=== PATIENT | female | born 2000 | race African-American/Black ===

== ENCOUNTER 2024-05-14 11:37 | Emergency (ER) | payer OTHER ==
[~2024-05-14] VITALS: Ht 162.6 cm; Wt 78.1 kg
[2024-05-14 11:47] VITALS: TEMP 96.6
[2024-05-14 14:48] VITALS: BP 117/59; O2SAT 98
== END 2024-05-14 14:49 | disposition home or self-care (01) ==
LOC: M ED 11:37
DX: R10.2 Pelvic and perineal pain (principal); Z87.42 Personal history of other diseases of the female genital tract; Z88.3 Allergy status to other anti-infective agents

== ENCOUNTER 2024-09-19 21:50 | Emergency (ER) | payer OTHER ==
[~2024-09-19] VITALS: Ht 165.1 cm; Wt 75.3 kg
[2024-09-19 21:54] VITALS: BP 107/56; TEMP 97.6; O2SAT 99
[2024-09-19 22:46] LABS: APPEARANCE, URINE CLEAR (CLEAR); BACTERIA, URINE AUTO NEGATIVE (NEGATIVE); BILIRUBIN, URINE AUTO NEGATIVE (NEGATIVE); BLOOD, URINE BLOOD NEGATIVE (NEGATIVE); COLOR, URINE YELLOW (YELLOW); GLUCOSE, URINE (UA) AUTO NEGATIVE (NEGATIVE); KETONE, URINE AUTO NEGATIVE (NEGATIVE); LEUKOCYTE ESTERASE, URINE AUTO NEGATIVE (NEGATIVE); MUCUS, URINE SMALL (NEGATIVE); NITRITE, URINE AUTO NEGATIVE (NEGATIVE); PROTEIN, URINE AUTO NEGATIVE (NEGATIVE); RBC, URINE AUTO 0 /HPF (0-3); SPECIFIC GRAVITY URINE AUTO 1.024 (1.002-1.035); SQUAMOUS EPITHELIAL CELL UR AU 1 /HPF (0-6); UROBILINOGEN, URINE AUTO 0.2 mg/dL (0.0-2.0); WBC, URINE AUTO 1 /HPF (0-3)
[2024-09-19 22:55] LABS: BASO # 0.1 10^3/uL (0.0-0.2); BASO % 0.6 % (0.0-1.0); EOS # 0.2 10^3/uL (0.0-0.5); EOS % 1.8 % (0.0-3.0); HEMATOCRIT 33.7 % (36.0-47.0); HEMOGLOBIN 11.2 g/dl (12.0-15.5); LYMPH # 2.9 10^3/uL (1.5-5.0); MEAN CORPUSCULAR HEMOGLOBIN 30.3 pg (27.0-33.0); MEAN CORPUSCULAR HGB CONC 33.2 g/dl (32.0-36.5); MEAN CORPUSCULAR VOLUME 91.1 fl (80.0-96.0); MONO # 0.6 10^3/uL (0.0-0.8); MONO % 7.5 % (2.0-8.0); NEUTROPHILS # 4.4 10^3/uL (1.5-8.5); NEUTROPHILS % 53.9 % (36.0-66.0); PLATELET COUNT, AUTOMATED 253 10^3/uL (150-450); WHITE BLOOD COUNT 8.2 10^3/uL (4.0-10.0)
[2024-09-19 23:18] LABS: BLOOD UREA NITROGEN 17 MG/DL (9-23); CALCIUM LEVEL 9.3 MG/DL (8.5-10.1); CARBON DIOXIDE LEVEL 26 MMOL/L (20-31); CHLORIDE LEVEL 107 MMOL/L (98-107); CREATININE FOR GFR 0.66 MG/DL (0.55-1.30); GLOMERULAR FILTRATION RATE > 90.0 (>60); GLUCOSE, FASTING 87 MG/DL (60-100); POTASSIUM SERUM 4.2 MMOL/L (3.5-5.1); SODIUM LEVEL 141 MMOL/L (136-145)
[2024-09-19 23:32] LABS: HCG, SERUM QUANTITATIVE 7751.2 MIU/ML (<4.2)
== END 2024-09-19 23:15 | disposition left against medical advice (07) ==
LOC: M ED 21:50
DX: Z53.21 Procedure and treatment not carried out due to patient leaving prior to being seen by health care provider (principal)

== ENCOUNTER → 2024-11-19 | Outpatient (REF) | payer OTHER ==
[~2024-11-19] MED LIST: CEPH500C PO; FAMO40TA3 PO; ONDA-282 PO; ONDA-83 PO; PREN1CHW6 PO; PYRI25TA2
[2024-11-19 14:30] LABS: Trichomonas vaginalis (AMP) NOT DETECTED (NEGATIVE)
[2024-11-19 14:53] LABS: GC DNA AMPLIFICATION NEGATIVE (NEGATIVE)
== END ==
LOC: M SFHCWAGY 12:51
PROVIDERS: ATTEND Obstetrics & Gynecology
DX: Z34.81 Encounter for supervision of other normal pregnancy, first trimester (principal)

== ENCOUNTER → 2024-12-23 | Outpatient (CLI) | payer OTHER | LOC: M WHC 09:02 | PROVIDERS: ATTEND Obstetrics & Gynecology | DX: O09.892 Supervision of other high risk pregnancies, second trimester (principal); Z3A.19 19 weeks gestation of pregnancy ==

== ENCOUNTER → 2024-12-23 | Outpatient (CLI) | payer OTHER ==
[2024-12-23 13:35] LABS: PLATELET COUNT, AUTOMATED 196 10^3/uL (150-450)
[2024-12-23 14:15] LABS: IRON (FE) 55.0 UG/DL (50-170)
== END ==
LOC: M PLALAB 10:32
PROVIDERS: ATTEND Advanced Practice Midwife
DX: O09.892 Supervision of other high risk pregnancies, second trimester (principal); Z3A.00 Weeks of gestation of pregnancy not specified

== ENCOUNTER 2025-01-10 12:59 | Outpatient (CLI) | payer OTHER ==
[~2025-01-10 12:59] MED LIST changes: +ALBUTEROL SULFATE 2.5 MG/0.5 ML INH CONCENTRATE NEB SOLN INH PRN; +EPINEPHrine INJ 1 MG/ML 1ML AMP IM PRN; +diphenhydrAMINE 50 MG/ML VIAL IV PRN
[2025-01-10] MEDS: FERRIC CARBOXYMALTOSE 750 MG (VIAL MATE) IN 100ML NS IV ONE (13:00)
[2025-01-10 13:05] VITALS: BP 120/66; O2SAT 99
[2025-01-10 13:45] VITALS: BP 125/70; O2SAT 98
== END 2025-01-10 13:50 | disposition home or self-care (01) ==
LOC: M INFU 12:59
PROVIDERS: ATTEND Advanced Practice Midwife
DX: O99.019 Anemia complicating pregnancy, unspecified trimester (principal); Z3A.00 Weeks of gestation of pregnancy not specified
CPT/HCPCS: 96365; J1439

== ENCOUNTER 2025-01-15 11:21 | Emergency (ER) | payer OTHER ==
[~2025-01-15 11:21] MED LIST changes: -ALBUTEROL SULFATE 2.5 MG/0.5 ML INH CONCENTRATE NEB SOLN INH PRN; -EPINEPHrine INJ 1 MG/ML 1ML AMP IM PRN; -diphenhydrAMINE 50 MG/ML VIAL IV PRN
== END 2025-01-15 13:15 | disposition admitted as inpatient to this hospital (09) ==
LOC: M ED 11:21
DX: Z53.21 Procedure and treatment not carried out due to patient leaving prior to being seen by health care provider (principal)

== ENCOUNTER 2025-01-15 11:30 | Outpatient (CLI) | payer OTHER ==
[~2025-01-15] VITALS: Ht 165.1 cm; Wt 83.9 kg
[2025-01-15 11:43] VITALS: BP 113/57
[2025-01-15] MEDS ORDERED: HOME MED LIST COMPLETE! XX SCH (11:45)
[2025-01-15 13:42] LABS: APPEARANCE, URINE CLEAR (CLEAR); BACTERIA, URINE AUTO NEGATIVE (NEGATIVE); BILIRUBIN, URINE AUTO NEGATIVE (NEGATIVE); BLOOD, URINE BLOOD NEGATIVE (NEGATIVE); GLUCOSE, URINE (UA) AUTO NEGATIVE (NEGATIVE); KETONE, URINE AUTO NEGATIVE (NEGATIVE); LEUKOCYTE ESTERASE, URINE AUTO NEGATIVE (NEGATIVE); MUCUS, URINE SMALL (NEGATIVE); NITRITE, URINE AUTO NEGATIVE (NEGATIVE); PROTEIN, URINE AUTO NEGATIVE (NEGATIVE); RBC, URINE AUTO 0 /HPF (0-3); SPECIFIC GRAVITY URINE AUTO 1.014 (1.002-1.035); SQUAMOUS EPITHELIAL CELL UR AU 1 /HPF (0-6); UROBILINOGEN, URINE AUTO 0.2 mg/dL (0.0-2.0); WBC, URINE AUTO 0 /HPF (0-3)
[2025-01-15 14:11] VITALS: BP 106/55
== END 2025-01-15 15:33 | disposition home or self-care (01) ==
LOC: M LDO 11:30
PROVIDERS: ATTEND Advanced Practice Midwife
DX: O26.892 Other specified pregnancy related conditions, second trimester (principal); R10.2 Pelvic and perineal pain; R25.2 Cramp and spasm; O26.22 Pregnancy care for patient with recurrent pregnancy loss, second trimester; Z3A.22 22 weeks gestation of pregnancy
CPT/HCPCS: 59025; 76815; 76817; 81001; 87088; 87186; G0463

== ENCOUNTER → 2025-01-16 | Outpatient (CLI) | payer OTHER | LOC: M WHC 11:02 | PROVIDERS: ATTEND Advanced Practice Midwife | DX: Z34.82 Encounter for supervision of other normal pregnancy, second trimester (principal); Z3A.22 22 weeks gestation of pregnancy ==

== ENCOUNTER → 2025-01-23 | Outpatient (CLI) | payer OTHER ==
[~2025-01-23] VITALS: Ht 165.1 cm; Wt 77.2 kg
[~2025-01-23] MED LIST changes: +ALBUTEROL SULFATE 2.5 MG/0.5 ML INH CONCENTRATE NEB SOLN INH PRN; +EPINEPHrine INJ 1 MG/ML 1ML AMP IM PRN; +FERRIC CARBOXYMALTOSE 750 MG (VIAL MATE) IN 100ML NS IV ONE; +diphenhydrAMINE 50 MG/ML VIAL IV PRN
[2025-01-23 15:35] VITALS: BP 106/60; O2SAT 98
[2025-01-23] MEDS: FERRIC CARBOXYMALTOSE 750 MG (VIAL MATE) IN 100ML NS IV ONE (15:43)
[2025-01-23 16:05] VITALS: BP 119/58; O2SAT 98
== END ==
LOC: M INFU 15:30
PROVIDERS: ATTEND Advanced Practice Midwife
DX: O99.019 Anemia complicating pregnancy, unspecified trimester (principal); Z3A.00 Weeks of gestation of pregnancy not specified
CPT/HCPCS: 96365; J1439

== ENCOUNTER → 2025-02-11 | Outpatient (CLI) | payer OTHER ==
[~2025-02-11] MED LIST changes: -ALBUTEROL SULFATE 2.5 MG/0.5 ML INH CONCENTRATE NEB SOLN INH PRN; -EPINEPHrine INJ 1 MG/ML 1ML AMP IM PRN; -FERRIC CARBOXYMALTOSE 750 MG (VIAL MATE) IN 100ML NS IV ONE; -diphenhydrAMINE 50 MG/ML VIAL IV PRN
== END ==
LOC: M PLALAB 09:13
PROVIDERS: ATTEND Nurse Practitioner Family
DX: Z34.82 Encounter for supervision of other normal pregnancy, second trimester (principal)

== ENCOUNTER → 2025-02-14 | Outpatient (CLI) | payer OTHER ==
[2025-02-14 14:54] LABS: PLATELET COUNT, AUTOMATED 185 10^3/uL (150-450)
[2025-02-14 15:34] LABS: HIV 1&2 SCREEN NEGATIVE (NEGATIVE)
[2025-02-14 15:41] LABS: HEPATITIS C VIRUS ABY INDEX 0.04 INDEX (<0.8)
[2025-02-14 16:49] LABS: Trichomonas vaginalis (AMP) NOT DETECTED (NEGATIVE)
[2025-02-14 17:12] LABS: GC DNA AMPLIFICATION NEGATIVE (NEGATIVE)
== END ==
LOC: M PLALAB 10:18
PROVIDERS: ATTEND Nurse Practitioner Family
DX: Z34.82 Encounter for supervision of other normal pregnancy, second trimester (principal)

== ENCOUNTER 2025-02-21 20:29 | Outpatient (CLI) | payer OTHER ==
[~2025-02-21] VITALS: Ht 162.6 cm; Wt 87.6 kg
[2025-02-21 20:43] VITALS: BP 108/55
[2025-02-21 21:13] LABS: KETONE, URINE AUTO RFX NEGATIVE (NEGATIVE); LEUKOCYTE ESTERASE UR AUTO RFX NEGATIVE (NEGATIVE); NITRITE, URINE AUTO RFX NEGATIVE (NEGATIVE); RBC, URINE AUTO RFX 0 /HPF (0-3); SQUAM EPITHELIAL CELL UR AURFX 1 /HPF (0-6); WBC, URINE AUTO RFX 0 /HPF (0-3)
[2025-02-21] MEDS: LR 1,000 ML IV ONE (21:40)
[2025-02-21 23:58] VITALS: BP 112/57
[2025-02-22 00:06] LABS: Trichomonas vaginalis (AMP) NOT DETECTED (NEGATIVE)
[2025-02-22 00:30] LABS: GC DNA AMPLIFICATION NEGATIVE (NEGATIVE)
== END 2025-02-21 23:53 | disposition home or self-care (01) ==
LOC: M LDO 20:29
PROVIDERS: ATTEND Advanced Practice Midwife
DX: O47.02 False labor before 37 completed weeks of gestation, second trimester (principal); O26.22 Pregnancy care for patient with recurrent pregnancy loss, second trimester; O09.212 Supervision of pregnancy with history of pre-term labor, second trimester; Z87.59 Personal history of other complications of pregnancy, childbirth and the puerperium; Z3A.27 27 weeks gestation of pregnancy
CPT/HCPCS: 36415; 59025; 76817; 81001; 82731; 87661; 87810; 87850; 96360; 96361; G0463

== ENCOUNTER → 2025-02-28 | Outpatient (REF) | payer OTHER | LOC: M SFHCWAGY 15:13 | PROVIDERS: ATTEND Advanced Practice Midwife | DX: O09.893 Supervision of other high risk pregnancies, third trimester (principal) ==

== ENCOUNTER → 2025-03-20 | Outpatient (CLI) | payer OTHER ==
[2025-03-20 15:55] LABS: ALT/SGPT 12 U/L (7.0-40); AST/SGOT 13 U/L (<34); CALCIUM LEVEL 9.5 MG/DL (8.5-10.1); CARBON DIOXIDE LEVEL 24 MMOL/L (20-31); CHLORIDE LEVEL 106 MMOL/L (98-107); CREATININE FOR GFR 0.58 MG/DL (0.55-1.30); GLOMERULAR FILTRATION RATE > 90.0 (>60); POTASSIUM SERUM 4.2 MMOL/L (3.5-5.1); SODIUM LEVEL 140 MMOL/L (136-145)
== END ==
LOC: M PLALAB 12:23
PROVIDERS: ATTEND Advanced Practice Midwife
DX: O99.713 Diseases of the skin and subcutaneous tissue complicating pregnancy, third trimester (principal); Z3A.00 Weeks of gestation of pregnancy not specified

== ENCOUNTER → 2025-03-28 | Outpatient (CLI) | payer OTHER | LOC: M WHC 11:48 | PROVIDERS: ATTEND Advanced Practice Midwife | DX: O09.893 Supervision of other high risk pregnancies, third trimester (principal); Z3A.33 33 weeks gestation of pregnancy ==

== ENCOUNTER → 2025-03-28 | Outpatient (REF) | payer OTHER | LOC: M SFHCWAGY 10:11 | PROVIDERS: ATTEND Advanced Practice Midwife | DX: O09.893 Supervision of other high risk pregnancies, third trimester (principal); Z3A.00 Weeks of gestation of pregnancy not specified ==

== ENCOUNTER 2025-04-14 15:44 | Outpatient (CLI) | payer OTHER ==
[~2025-04-14] VITALS: Ht 162.6 cm; Wt 89.5 kg
[2025-04-14 15:54] VITALS: BP 119/57
[2025-04-14] MEDS: BETAMETHASONE SOLUSPAN 6 MG/ML 5 ML VIAL IM SCH (18:40)
== END 2025-04-14 19:34 | disposition home or self-care (01) ==
LOC: M LDO 15:44
PROVIDERS: ATTEND Advanced Practice Midwife
DX: O47.03 False labor before 37 completed weeks of gestation, third trimester (principal); O99.03 Anemia complicating the puerperium; O09.213 Supervision of pregnancy with history of pre-term labor, third trimester; O09.893 Supervision of other high risk pregnancies, third trimester; D50.9 Iron deficiency anemia, unspecified; Z87.59 Personal history of other complications of pregnancy, childbirth and the puerperium; Z3A.35 35 weeks gestation of pregnancy
CPT/HCPCS: 59025; 96372; G0463; J0702

== ENCOUNTER 2025-04-15 19:12 | Outpatient (CLI) | payer OTHER ==
[~2025-04-15] VITALS: Ht 162.6 cm; Wt 93.2 kg
[2025-04-15 19:23] VITALS: BP 109/62
[2025-04-15] MEDS: BETAMETHASONE SOLUSPAN 6 MG/ML 5 ML VIAL IM STA (19:28)
[2025-04-15] MEDS ORDERED: HOME MED LIST COMPLETE! XX SCH (19:45)
== END 2025-04-15 19:36 | disposition home or self-care (01) ==
LOC: M LDO 19:12
PROVIDERS: ATTEND Obstetrics & Gynecology
DX: O09.893 Supervision of other high risk pregnancies, third trimester (principal); Z87.59 Personal history of other complications of pregnancy, childbirth and the puerperium
CPT/HCPCS: 96372; J0702

== ENCOUNTER → 2025-04-24 | Outpatient (REF) | payer OTHER | LOC: M SFHCWAGY 12:43 | PROVIDERS: ATTEND Advanced Practice Midwife | DX: O26.23 Pregnancy care for patient with recurrent pregnancy loss, third trimester (principal) ==

== ENCOUNTER → 2025-04-25 | Outpatient (CLI) | payer OTHER | LOC: M WHC 12:13 | PROVIDERS: ATTEND Advanced Practice Midwife | DX: O09.893 Supervision of other high risk pregnancies, third trimester (principal); Z3A.35 35 weeks gestation of pregnancy ==

== ENCOUNTER → 2025-04-25 | Outpatient (REF) | payer OTHER | LOC: M SFHCWAGY 15:00 | PROVIDERS: ATTEND Advanced Practice Midwife | DX: O26.23 Pregnancy care for patient with recurrent pregnancy loss, third trimester (principal) ==